=== PATIENT | female | born 1970 | race African-American/Black ===

== ENCOUNTER → 2018-03-02 | Outpatient (CLI) | payer OTHER | LOC: COL.RAD 13:53 | DX: M51.27 Other intervertebral disc displacement, lumbosacral region (principal); M48.07 Spinal stenosis, lumbosacral region; S83.242A Other tear of medial meniscus, current injury, left knee, initial encounter; M25.762 Osteophyte, left knee ==

== ENCOUNTER → 2018-04-20 | Outpatient (CLI) | payer OTHER | LOC: COL.RAD 09:19 | DX: D25.9 Leiomyoma of uterus, unspecified (principal) ==

== ENCOUNTER → 2018-10-16 | Outpatient (CLI) | payer OTHER | LOC: MC.RAD 07:20 | DX: Z12.31 Encounter for screening mammogram for malignant neoplasm of breast (principal); I10 Essential (primary) hypertension; M23.204 Derangement of unspecified medial meniscus due to old tear or injury, left knee; N83.202 Unspecified ovarian cyst, left side ==

== ENCOUNTER 2018-10-23 15:15 | Day surgery (SDC) | payer OTHER ==
[~2018-10-23] VITALS: Ht 167.6 cm; Wt 92.3 kg
[2018-10-23 15:32] VITALS: BP 139/91; PULSE 72; TEMP 97.9
[2018-10-23 16:45] VITALS: BP 128/78; PULSE 69; TEMP 98.1
[2018-10-23 17:00] VITALS: BP 124/80; PULSE 68
[2018-10-23 17:15] VITALS: BP 118/67; PULSE 71
== END 2018-10-23 17:50 | disposition home or self-care (01) ==
LOC: SDCO 15:15
DX: Z12.11 Encounter for screening for malignant neoplasm of colon (principal)
CPT/HCPCS: J2250; J3010; J7030

== ENCOUNTER 2019-03-23 12:02 | Emergency (ER) | payer OTHER ==
[~2019-03-23] VITALS: Ht 165.1 cm; Wt 91.4 kg
[2019-03-23 12:13] VITALS: TEMP 99.1
[2019-03-23 14:43] LABS: BASO % 0.5 % (0.0-2.0); GRAN # 2.4 (1.4-6.5); GRAN % 66.3 % (42.2-75.2); HEMATOCRIT 37.6 % (37.0-47.0); HEMOGLOBIN 12.7 g/dl (12.5-16.0); LYMPH # 0.7 (1.2-3.4); LYMPH % 18.5 % (20.0-51.0); MEAN CELL VOLUME 88 fl (80.0-100.0); MEAN CORPUSCULAR HEMOGLOBIN 30 pg (27.0-31.0); MEAN CORPUSCULAR HGB CONC 34 g/dl (33.0-37.0); MONO # 0.5 (0.1-0.6); MONO % 14.4 % (1.7-9.3); PLATELET COUNT 201 K/mm3 (130-400); RED BLOOD COUNT 4.26 M/mm3 (4.10-5.30); REDCELL DISTRIBUTION WIDTH-CV 13.3 % (11.5-14.5)
[2019-03-23 15:07] LABS: ALBUMIN 4.2 gm/dL (3.5-5.0); BILIRUBIN,TOTAL 0.4 mg/dL (0.0-1.0); C-REACTIVE PROTEIN 2.3 mg/dL (0.0-0.9); CALCIUM 9.1 mg/dL (8.4-10.2); CREATININE, serum 0.85 (0.52-1.25); POTASSIUM 3.6 mmol/L (3.4-5.0); TOTAL PROTEIN 8.2 gm/dL (6.4-8.2)
[2019-03-23 15:08] LABS: COLLECTION METHOD CLEAN CATCH
[2019-03-23 15:13] LABS: PH 5 (5-8); SQUAMOUS EPITHELIAL 0-2 /hpf; URINE APPEARANCE Clear; URINE BACTERIA None Seen /hpf; URINE BILIRUBIN Negative (NEGATIVE); URINE BLOOD 2+ (NEGATIVE); URINE COLOR Yellow; URINE GLUCOSE Negative (NEGATIVE); URINE KETONE Negative (NEGATIVE); URINE LEUKOCYTE ESTERASE Negative (NEGATIVE); URINE NITRATE Negative (NEGATIVE); URINE PROTEIN(semi-quant) Negative (NEGATIVE); URINE RBC 0-2 /hpf; URINE UROBILINOGEN Negative (NEGATIVE)
[2019-03-23] MEDS ORDERED: CIPRO 500MG TA500 MG PO (16:44)
[2019-03-23 18:01] VITALS: BP 132/86; PULSE 78
== END 2019-03-23 18:03 | disposition home or self-care (01) ==
LOC: COL.ER 12:02
PROVIDERS: Emergency Medicine
DX: R10.31 Right lower quadrant pain (principal)
CPT/HCPCS: J1170; J2405; J7030; Q9967

== ENCOUNTER → 2019-11-30 | Outpatient (CLI) | payer OTHER ==
[~2019-11-30] MED LIST: CIPRO 500MG TA500 MG PO
== END ==
LOC: MC.RAD 08:08
DX: Z12.31 Encounter for screening mammogram for malignant neoplasm of breast (principal)

== ENCOUNTER → 2020-10-04 | Outpatient (CLI) | payer OTHER | LOC: COL.RAD 07:45 | DX: M25.552 Pain in left hip (principal); R06.09 Other forms of dyspnea; Z98.890 Other specified postprocedural states | CPT/HCPCS: Q9967 ==

== ENCOUNTER → 2021-01-02 | Outpatient (CLI) | payer OTHER | LOC: MC.RAD | DX: Z12.31 Encounter for screening mammogram for malignant neoplasm of breast (principal) ==

== ENCOUNTER → 2021-03-20 | Outpatient (CLI) | payer OTHER | LOC: COL.RAD 12:50 | DX: M25.78 Osteophyte, vertebrae (principal); E04.9 Nontoxic goiter, unspecified ==

== ENCOUNTER → 2021-05-16 | Outpatient (CLI) | payer OTHER | LOC: COL.RAD 10:39 | DX: M54.2 Cervicalgia (principal) ==

== ENCOUNTER → 2022-01-16 | Outpatient (CLI) | payer OTHER | LOC: COL.RAD 07:00 | DX: R10.11 Right upper quadrant pain (principal) | CPT/HCPCS: A9537 ==

== ENCOUNTER → 2022-01-23 | Outpatient (CLI) | payer OTHER | LOC: COL.RAD 07:28 | DX: R10.11 Right upper quadrant pain (principal) | CPT/HCPCS: Q9967 ==

== ENCOUNTER → 2024-08-25 | Outpatient (CLI) | payer BC | LOC: MC.RAD 07:21 | DX: Z12.31 Encounter for screening mammogram for malignant neoplasm of breast (principal) ==